=== PATIENT | female | born 1960 | race African-American/Black ===

== ENCOUNTER 2019-05-01 21:24 | Emergency (ER) | payer OTHER ==
[~2019-05-01] VITALS: Ht 162.6 cm; Wt 86.5 kg
[2019-05-01 21:45] VITALS: BP 158/88
== END 2019-05-02 00:41 | disposition left against medical advice (07) ==
LOC: ER 21:24
DX: R06.02 Shortness of breath (principal); Z53.21 Procedure and treatment not carried out due to patient leaving prior to being seen by health care provider